=== PATIENT | female | born 2000 | race Caucasian/White ===

== ENCOUNTER → 2022-04-15 | Outpatient (CLI) | payer SELFPAY ==
--- NOTE | 2022-04-15 16:00 | MRI_ITS ---
STUDY: MRI BRAIN WITH AND WITHOUT CONTRAST REASON FOR EXAM: Female, 21 years old. Multiple sclerosis, tongue numbness, trouble swallowing, face numbness TECHNIQUE: Standardized multiplanar fat and water weighted pulse sequences were obtained. IV Yes YES was administered for the contrast portion of the examination. COMPARISON: None. FINDINGS: Normal size of the ventricles and extra-axial spaces for the patient''s age. Normal white matter tracts of the supratentorial brain. There are no demyelinating plagues of the supratentorial brain, brainstem or cerebellum. There are no findings suspicious for multiple sclerosis (MS). There is no evidence for recent intracranial ischemia or other cause of cytotoxic edema on diffusion weighted imaging (DWI). Normal T2* images of the brain without demonstrated susceptibility artifact. There is no demonstrated hemosiderin stain. Normal bilateral basal ganglia. Normal thalami. There is no extra-axial fluid accumulation. Normal flow voids within the major intracranial circulation suggesting patency by spin echo criteria. Normal venous enhancement. There is no enhancing intra-axial or extra-axial abnormality. Normal sella turcica, pituitary gland, infundibular stalk, optic chiasm and hypothalamus. Normal tectal plate and pineal gland. Normal midbrain, franco and medulla. Normal cerebellum. Normal basal cisterns. Normal bilateral temporal bones. Normal bilateral internal auditory canals. No demonstrated orbital abnormality, within the constraints of a routine brain study. Normal visualized paranasal sinuses. Normal calvarium and skull base. Normal visualized soft tissue structures. Normal visualized upper cervical spine. MRI/Brain W/WO Contrast IMPRESSION: There is no abnormal white matter or optic tract FLAIR hyperintensity. Normal unenhanced and enhanced MRI of the brain. Electronically Signed: Jimmy Crane MD at 6:32 EDT ,
== END | disposition home or self-care (01) ==
PROVIDERS: Referring Provider Otolaryngology Otolaryngology/Facial Plastic Surgery; Visit Provider Otolaryngology Otolaryngology/Facial Plastic Surgery
DX: R13.10 Dysphagia, unspecified (principal); R20.0 Anesthesia of skin
CPT/HCPCS: 70553; A9575